=== PATIENT | male | born 1945 | race Caucasian/White ===

== ENCOUNTER 2021-10-14 05:39 | Day surgery (SDC) | payer OTHER ==
[~2021-10-14] VITALS: Ht 188 cm; Wt 76.0 kg
[~2021-10-14 05:39] MED LIST: AMLO5 PO; EUTHYROX88 MCG PO; Flovent Diskus50 MCG IH; GABA300 PO; METF500 PO; METO50 PO; NAPROXEN250 M1 PO; NITR.4SL SL; PANT40 PO; Pravastatin Sod80 MG PO; ZYRTEC10 M2 PO
--- NOTE | 2021-10-14 07:50 | NUR ---
PT TO TO RECOVERY ROOM POST PROCEDURE. PT AWAKE AND CONVERSING APPROPRIATELY; DENIES CHEST PAIN POST PROCEUDRE. MONITOR SB 40-50'S, B/P 122/73, AFEBRILE, SPO2 95% RA. R RADIAL SITE NO SWELLING/HEMATOMA, TR BAND IN PLACE 11 ML AIR, WRIST IMMOBILIZER IN PLACE; RUE POSITIVE PLEUTH POST TR BAND PLACEMENT.
--- NOTE | 2021-10-14 09:33 | NUR ---
CONTINUE TO REMOVE AIR FROM THE TR BAND. STARTED AT O900 AND NO BLEEDING NOTED. CONTINUE TO MONITOR.
--- NOTE | 2021-10-14 09:49 | NUR ---
TR BAND FLAT. PATIENT UP TO THE RESTROOM. OFF THE MONITOR. VVS. NO PAIN, SLIGHT TENDERNESS TO THE RIGHT WRIST.
--- NOTE | 2021-10-14 10:21 | NUR ---
PATIENT IS DISCHARGED HOME VIA WHEELCHAIR TO [facility] WITH REFERRAL TO
--- NOTE | 2021-10-14 10:27 | NUR ---
1000 PATEINT TR BAND WAS FLAT, PATEINT IS DRESSING SELF, ALL BELONGING GATHERED. PIV TO THE LEFT AC REMOVED. CATHTIP INTACT AND PRESSURE DRESSING APPLIED. STA WITH THE [facility]AN[facility] AND REVIEWED ALL DISCHARGE INSTRUCTIONS AND ALL QUESTIONS ANSWERED. TOMA IS REFERRED TO [facility] FOR A SENIOR ARCHITECT/DESIGN MANAGER TO THE LAD AND WILL NEED SURGICAL BACK UP. PATIENT UNDERSTANDS AND WILL FOLLOW UP WITH DR. SALINAS AFTER THE PROCEDURE IN [facility].
== END 2021-10-14 10:30 | disposition home or self-care (01) ==
LOC: MHTC 05:39
DX: T82.855A Stenosis of coronary artery stent, initial encounter (principal); I25.10 Atherosclerotic heart disease of native coronary artery without angina pectoris; Y71.2 Prosthetic and other implants, materials and accessory cardiovascular devices associated with adverse incidents; R06.00 Dyspnea, unspecified; E03.9 Hypothyroidism, unspecified; I10 Essential (primary) hypertension; E11.9 Type 2 diabetes mellitus without complications; E78.5 Hyperlipidemia, unspecified; Z88.8 Allergy status to other drugs, medicaments and biological substances; Z87.891 Personal history of nicotine dependence
CPT/HCPCS: 76937; 93454; 99152; 99153; C1769; C1887; C1894; J1644; J2250; J3010; J7030; J7050; Q9967

== ENCOUNTER 2023-07-09 11:04 | Day surgery (SDC) | payer OTHER ==
[~2023-07-09] VITALS: Ht 188 cm; Wt 74.1 kg
[2023-07-09] MEDS ORDERED: CARV3.125 (12:08)
[2023-07-09] MEDS ORDERED: ROSU10TA (12:09)
[2023-07-09] MEDS ORDERED: B-12500 MC2 (12:11)
[2023-07-09] MEDS ORDERED: CALCIUM 500 MG1 EAC2 PO (12:37)
--- NOTE | 2023-07-09 13:14 | NUR ---
07/09/23 1314 Shanon Sauer VERBAL ORDERS FROM DR. ROMAN FOR A DUONEB FOR PATIENT BILAT WHEEZE.
--- NOTE | 2023-07-09 13:51 | NUR ---
07/09/23 1351 Carey Benjamin BLOCK COMPLETE IN OR BY DR ROMAN. PT TOLERATED WELL. VSS.
[2023-07-09 14:47] VITALS: BP 163/82
== END 2023-07-09 15:38 | disposition home or self-care (01) ==
LOC: ORSCSDS 11:04
PROVIDERS: Orthopaedic Surgery
PROC: 01N50ZZ Release Median Nerve, Open Approach (ICD-10-PCS; principal; 2023-07-09 13:45)
PROC: 0LN80ZZ Release Left Hand Tendon, Open Approach (ICD-10-PCS; principal; 2023-07-09 13:45)
DX: G56.03 Carpal tunnel syndrome, bilateral upper limbs (principal); M65.342 Trigger finger, left ring finger; E11.9 Type 2 diabetes mellitus without complications; I25.10 Atherosclerotic heart disease of native coronary artery without angina pectoris; E03.9 Hypothyroidism, unspecified; E78.5 Hyperlipidemia, unspecified; Z79.899 Other long term (current) drug therapy; Z79.82 Long term (current) use of aspirin; Z79.84 Long term (current) use of oral hypoglycemic drugs; Z87.891 Personal history of nicotine dependence
CPT/HCPCS: 82947; J0690; J1885; J2001